=== PATIENT | female | born 1945 | race Caucasian/White ===

== ENCOUNTER → 2018-01-14 | Outpatient (CLI) | payer OTHER ==
[~2018-01-14] MED LIST: ADVAIR 100-501 EACH; ADVAIR 250-501 EACH INH; ADVAIRDISKUS INH; ALTACE 1.25 M1.25 M1 PO; ARIXTRA; ARIXTRA SQ; ASCRIPTIN 325325 MG PO; ASPIRIN EC81 M1 PO; AZITHROMYCIN 2250 MG PO; BENADRYL25 MG PO; CEFDINIR300 MG PO; CIPROFLOXACIN500 M1 PO; COLACE 100 MG100 MG PO; COLACE100 MG PO; COMBIVENT INH; COZAAR 25 MG TA25 M1 PO; DESYREL50 MG PO; EFFIENT10 MG PO; MECLIZINE HCL25 M1 PO; MEDROLDOSEPACK PO; METAMUCIL PAC1 UDPK1 GT; METOPROLOL SUCC25 M1 PO; MIRALAX255 GM PO; MOM; MUCINEX600 MG PO; NORCO 7.5-3251 EACH PO; OMEPRAZOLE PO; OXYIR5 MG PO; PEPCID AC20 M1 PO; PERCOCET 7.5-31 EACH PO; PLAVIX 75 MG TA75 M1 PO; PREDNISONE 10 M10 M1 PO; PRILOSEC 20 MG20 MG PO; SINGULAIR 10 MG10 M1 PO; SYNTHROID100 MCG PO; SYNTHROID150 MCG PO; SYNTHROID175 MCG PO; TRIAMTERENE-HC1 EAC3 PO; VENTOLIN HFA 1818 GM INH; VITAMIN D3400 UNIT PO; ZOCOR 20 MG TAB20 M1 PO
--- NOTE | 2018-01-17 16:46 | CARDNUC ---
[place] [address] CARDIAC NUCLEAR IMAGING REPORT Name: ANGELINA BLANKENSHIP Room: [facility]#: [id number] Admission: 01/14/18 Attend Phys: Radha Lee Discharge: Date of : 47 Date of Service: 01/17/18 1646 Report #: [id number] THIS REPORT FOR: //name// APPROVED REPORT Study performed: 01/14/2018 13:45:00 Indication: Chest pain Patient Location: Out-Patient Stress Tech: Anna Mccray Stress Nurse: Luanne Painting RN Ht: 5 ft 7 in Wt: 238 lbs BSA: 2.18 m2 BMI: 37.27 Medical History Medical History: mi, cad, pci, hyperlipidemia, Medications: plavix, simvastatin, metoprolol Allergies: lisinopril, sulfa Cardiac Risk Factors: age, hyperlipidemia, family hx Previous Cardiac Procedures: pci Exercise History: Indeterminate Resting Data Rest SPECT myocardial perfusion imaging was performed in supine position 30 minutes following the intravenous injection of 38.4 mCi of Tc-99m Sestamibi. Time of rest injection: 07:50 Date: 01/17/2018 The images were gated to evaluate regional wall motion and calculate left ventricular ejection fraction. Administration Route: Straight Stick Administration Site: Right AC Pharmacologic Stress Pharmacologic stress test was performed by injecting Regadenoson 0.4 mg IV push over 10-15 seconds immediately followed by the intravenous injection of 41.2 mCi of Tc-99m Sestamibi. Time of stress injection: 13:30 Date: 01/14/2018 Administration Route: IV Administration Site: Right Arm Heart Rate at time of stress injection: 102 bpm. Gated Stress SPECT was performed 40 minutes after stress injection. The images were gated to evaluate regional wall motion and calculate left ventricular [place] [address] CARDIAC NUCLEAR IMAGING REPORT Name: ANGELINA BLANKENSHIP Room: [facility] Cinda#: [id number] Admission: 01/14/18 Attend Phys: Radha Lee Discharge: Date of : 47 Date of Service: 01/17/18 1646 Report #: [id number] Stress Test Details Stress Test: Pharmacologic stress testing performed using 0.4 mg of regadenoson per 5 mL given IV over 10 seconds. Reason for pharmacologic stress test: physical limitation. HR Max Heart Rate (APMHR): 149 bpm Resting HR: 86 bpm Target HR (85% APMHR): 126 bpm Max HR Achieved: 102 bpm % of APMHR: 68 Recovery HR: 99 bpm HR response to stress: Normal HR response to stress BP Resting BP: 151/96 mmHg Recovery BP: 136/76 mmHg BP response to stress: Normal blood pressure response to stress. ECG Resting ECG: Sinus Rhythm Stress ECG: Sinus Rhythm Recovery ECG: Sinus Rhythm Clinical Reason for Termination: Completed protocol Stress Symptoms: None Exercise duration: 0 min sec Exercise capacity: 1 METs Nurse Comments pt given [place] pt walks with a cane Stress ECG Conclusion negative for ischemia Study Quality Study: Good Artifact: Mild Breast artifact Lung Uptake: Normal Study Data At rest, the left ventricular ejection fraction was 65%.. Post stress, the left ventricular ejection was 70%.. SSS: 9 SRS: 12 [place] [address] CARDIAC NUCLEAR IMAGING REPORT Name: ANGELINA BLANKENSHIP Room: [facility]#: [id number] Admission: 01/14/18 Attend Phys: Radha Lee Discharge: Date of : 47 Date of Service: 01/17/18 1646 Report #: [id number] SDS: -3 TID = 0.90. Perfusion Review of SPECT images reveals a patchy, inhomongenous uptake of tracer in all segments, but no defined reversible defects. Prone images show some improvement, which showed normal perfusion Images were reviewed using [employer]. Wall Motion normal all segments Nuclear Conclusion ECG Findings: negative for ischemia Clinical Findings: negative for ischemia Nuclear Findings: negative for ischemia Exercise Capacity: not assessed Left Ventricular Function: normal Risk Study: low Negative perfusion nuclear stress test for infarct/ischemia <Conclusion> negative for ischemia <ELECTRONICALLY SIGNED> By: Javid Rodriguez MD, FACC 01/17/181645 45 45 Javid Rodriguez MD, FACC /INF
== END ==
LOC: M.NUC 12-28 12:26 → M.CRD 12:21 → M.NUC 13:00 → M.CRD 14:00
DX: I25.10 Atherosclerotic heart disease of native coronary artery without angina pectoris (principal); J45.909 Unspecified asthma, uncomplicated; K21.9 Gastro-esophageal reflux disease without esophagitis; I71.9 Aortic aneurysm of unspecified site, without rupture; Z90.49 Acquired absence of other specified parts of digestive tract; Z72.89 Other problems related to lifestyle; Z98.61 Coronary angioplasty status

== ENCOUNTER → 2020-10-02 | Outpatient (CLI) | payer OTHER | LOC: M.NUC 10:56 | PROVIDERS: ATTEND Nurse Practitioner Adult Health | DX: R68.81 Early satiety (principal) ==